=== PATIENT | female | born 1995 | race Caucasian/White ===

== ENCOUNTER 2019-02-15 13:44 | Inpatient (IN) ==
[2019-02-15] MEDS ORDERED: LIDOCAINE 1% 50 ML VIAL MISC INJ ONE (14:14)
[2019-02-15] MEDS ORDERED: ONDANSETRON 4 MG/2 ML VIAL IV PRN (14:14)
[2019-02-15] MEDS ORDERED: CARBOPROST TROMETHAMINE 250 MCG/ML AMP IM PRN (14:14)
[2019-02-15] MEDS ORDERED: BUTORPHANOL 2 MG/ML VIAL IV PRN (14:14)
[2019-02-15] MEDS ORDERED: MEPERIDINE 50 MG/1 ML VIAL IM PRN (14:14)
[2019-02-15] MEDS ORDERED: miSOPROStoL 200 MCG TABLET VAG PRN (14:14)
[2019-02-15] MEDS: LACTATED RINGERS 1,000 ML IV SCH ×2 (14:24→22:30)
[2019-02-15] MEDS ORDERED: AMPICILLIN INJ 2,000 MG in SODIUM CHLORIDE 0.9% 100 ML IV ONE (14:30)
[2019-02-15 14:31] LABS: Basophils % 0.2 % (0.0-0.8); Eosinophils # 0.1 10*3/uL (0.0-0.87); Eosinophils % 0.9 % (0.00-10.9); Hemoglobin 10.9 GM/DL (12.0-16.0); Immature Granulocytes % 0.9 %; Immature Granulocytes Absolute 0.13 #; Lymphocytes # 3.1 10*3/uL (1.4-4.0); Lymphocytes % 22.1 % (21.3-54.2); Mean Corpuscular HGB Conc 34.1 GM/DL (32-36); Mean Corpuscular Volume 87.7 FL (87-102); Mean Platelet Volume 11.2 FL (9.6-12.0); Monocytes % 6.8 % (1.7-12.7); Neutrophils % 69.1 % (38.7-73.9); Platelet Count 232 T/CUMM (130-400); Red Blood Count 3.65 MC/CUMM (3.8-5.5); Red Cell Distribution Width 13.9 % (9.3-17.3); White Blood Count 13.9 T/CUMM (4-12)
[2019-02-15] MEDS: OXYTOCIN/LR 20 UNIT/1,000 ML BAG IV SCH (15:26)
[2019-02-15] MEDS: AMPICILLIN INJ 1,000 MG in SODIUM CHLORIDE 0.9% 100 ML IV SCH ×2 (18:17→22:22)
[2019-02-15] MEDS ORDERED: ePHEDrine 50 MG/ML AMP IV PRN (21:55)
[2019-02-15] MEDS ORDERED: hydrOXYzine HCL 25 MG/1 ML VIAL IM PRN (21:55)
[2019-02-15] MEDS ORDERED: fentaNYL 2 MCG/ROPIV 0.2% EPID 100 ML EPIDURAL PRN (21:55)
[2019-02-15] MEDS ORDERED: PROMETHAZINE 25 MG/1 ML VIAL IM PRN (21:55)
[2019-02-15] MEDS ORDERED: NALOXONE 0.4 MG/ML VIAL IV PRN (21:55)
[2019-02-15] MEDS ORDERED: diphenhydrAMINE 50 MG/1 ML VIAL IV PRN ×2 (21:55)
[2019-02-15] MEDS ORDERED: CITRIC ACID/SODIUM CITRATE 30 ML UDCUP PO ONE (21:56)
[2019-02-15] MEDS ORDERED: FAMOTIDINE 20 MG/2 ML VIAL IV ONE (21:56)
[2019-02-16] MEDS: AMPICILLIN INJ 1,000 MG in SODIUM CHLORIDE 0.9% 100 ML IV SCH ×2 (02:02→05:51)
[2019-02-16] MEDS ORDERED: TRANEXAMIC ACID 1,000 MG/10 ML VIAL ONE (05:08)
[2019-02-16] MEDS ORDERED: OXYTOCIN/LR 0 UNIT/0 ML BAG IV ONE (05:08)
[2019-02-16] MEDS ORDERED: miSOPROStoL 200 MCG TABLET ONE (05:08)
[2019-02-16] MEDS ORDERED: CARBOPROST TROMETHAMINE 250 MCG/ML AMP IM ONE (05:09)
[2019-02-16] MEDS ORDERED: METHYLERGONOVINE 0.2 MG/1 ML AMP ONE (05:09)
[2019-02-16] MEDS ORDERED: WITCH HAZEL PADS 100/JAR TOP PRN (06:50)
[2019-02-16] MEDS ORDERED: BISACODYL 10 MG SUPP RECTAL PRN (06:50)
[2019-02-16] MEDS ORDERED: BENZOCAINE 20%/MENTHOL 0.5% SPRAY 56 GM CAN TOP PRN (06:50)
[2019-02-16] MEDS ORDERED: LANOLIN 50% CREAM 0.3 OZ TUBE TOP PRN (06:50)
[2019-02-16] MEDS ORDERED: IBUPROFEN 800 MG TABLET PO PRN (06:50)
[2019-02-16] MEDS ORDERED: HYDROCORTISONE 2.5% RECTAL CREAM 30 GM TUBE TOP PRN (06:50)
[2019-02-16] MEDS ORDERED: ACETAMINOPHEN 325 MG TABLET PO PRN (06:50)
[2019-02-16] MEDS: OXYTOCIN/LR 20 UNIT/1,000 ML BAG IV SCH (09:27)
[2019-02-16] MEDS ORDERED: oxyCODONE/ACETAMINOPHEN 5-325 MG TABLET PO PRN (11:06)
[2019-02-16] MEDS: DOCUSATE SODIUM 100 MG CAPSULE PO SCH ×2 (17:43→21:27)
[2019-02-16] MEDS: FERROUS SULFATE 325 MG TABLET PO SCH ×2 (17:44→21:27)
[2019-02-17 05:53] LABS: Basophils % 0.2 % (0.0-0.8); Eosinophils # 0.2 10*3/uL (0.0-0.87); Hematocrit 25.9 VOL% (35.7-47.0); Hemoglobin 8.4 GM/DL (12.0-16.0); Immature Granulocytes % 0.7 %; Lymphocytes # 3.3 10*3/uL (1.4-4.0); Lymphocytes % 21.7 % (21.3-54.2); Mean Corpuscular HGB Conc 32.4 GM/DL (32-36); Mean Corpuscular Volume 88.7 FL (87-102); Mean Platelet Volume 11.3 FL (9.6-12.0); Neutrophils % 68.4 % (38.7-73.9); Platelet Count 208 T/CUMM (130-400); Red Blood Count 2.92 MC/CUMM (3.8-5.5); Red Cell Distribution Width 14.3 % (9.3-17.3)
[2019-02-17] MEDS: FERROUS SULFATE 325 MG TABLET PO SCH ×2 (10:14→22:18)
[2019-02-17] MEDS: DOCUSATE SODIUM 100 MG CAPSULE PO SCH ×2 (10:14→22:18)
[2019-02-18 08:24] VITALS: BP 126/64
[2019-02-18] MEDS: FERROUS SULFATE 325 MG TABLET PO SCH (09:31)
[2019-02-18] MEDS: DOCUSATE SODIUM 100 MG CAPSULE PO SCH (09:33)
== END 2019-02-18 10:20 | disposition home or self-care (01) | DRG 807 ==
LOC: N.LDOUT 13:44 → N.LD 13:48 → N.OB 02-16 10:42
PROVIDERS: ADMIT Obstetrics & Gynecology; ATTEND Obstetrics & Gynecology